=== PATIENT | male | born 1975 | race Caucasian/White ===

== ENCOUNTER 2021-05-19 01:02 | Day surgery (SDC) | payer BC, SELFPAY ==
[2021-05-02 13:45] VITALS: BMI 24.4
--- NOTE | 2021-05-19 09:33 | P.PNAN_ITS ---
Anes - Initial Pre Proc Eval Procedure: Operation Date: 05/19/21 10:45 Proposed Procedures p Esophagogastroduodenoscopy & Screening Colonoscopy - Oscar Leija MD Date/Time: 05/19/21 09:33 Surgeon: Oscar Leija MD Pre Op Diagnosis: neoplasm screening, dysphagia Patient Data Age: 45 Gender: M Height: 1.85 m Weight: 84 kg Allergies Allergy/AdvReac Type Severity Reaction Status Date / Time Penicillins Allergy Unknown Verified 05/19/21 09:37 Home Medications Medication Instructions Recorded Confirmed Type No Home Medications 05/02/21 05/19/21 History Patient hx anesthesia problems: none Family hx anesthesia problems: none Results Review: All pre-operative results and documents have been reviewed as part of the pre-operative evaluation. [facility] Social History Social History Smoking status: Never smoker Alcohol intake: former Substance use: never Substance use type: does not use Living arrangements: with family Spiritual care concerns: No Anes - Eval Final PreProcedure Day of Procedure 05/19/21 09:33 Patient weight: normal Heart: regular rate and rhythm Lungs: clear to auscultation Airway: Mallampati scale class II Neurological: alert and oriented Last oral intake: >/= 8 hours ASA classification: I Emergent: no Anesthesia type and monitoring: general GIVS and standard monitoring Results Review: All pre-operative results and documents have been reviewed as part of the pre-operative evaluation. Informed Consent: The patient's anesthetic plan and its attendant risks and benefits were discussed with the patient/family/POA. Questions were solicited and answers provided to the satisfaction of the patient/family/POA.
[2021-05-19 09:38] VITALS: BP 143/87; PULSE 83; RESP 20; TEMP 36.1; O2SAT 100
--- NOTE | 2021-05-19 09:49 | P.CONGI_ITS ---
Assessment and Plan Assessment and plan (1) Dysphagia: Code(s): R13.10 - Dysphagia, unspecified Status: Acute Assessment and Plan: Patient reports difficulty swallowing off and on for the last year. Suspicio us for esophageal narrowing. Plan is for EGD to assess more thoroughly. Likely will require esophageal dilatation. (2) Encounter for screening colonoscopy: Code(s): Z12.11 - Encounter for screening for malignant neoplasm of colon Status: Acute Assessment and Plan: Patient presents for screening colonoscopy. Appears to be at average risk for colon polyps. GI Consult Note Consult date/time: 05/19/21 09:49 HPI: Mingo Clancy is a 45 year old male Presents for both colonoscopy and EGD. Colonoscopy is requested because of his age. Neoplasia screening advised. He reports his current weight appetite and bowel movements are normal. He denies any bleeding. He has had regular soft bowel habits patient complains of some difficulty swallowing. He reports that food will catch she feels it in his throat. Solid foods happen more often than liquids. He denies any bleeding or weight loss. He desires evaluation of swallowing difficulties. Review of Systems Review of Systems: All systems reviewed & are unremarkable except as noted in HPI and below [facility] Social History Social History Smoking status: Never smoker Alcohol intake: former Substance use: never Substance use type: does not use Living arrangements: with family Spiritual care concerns: No Meds Home Medications and Allergies Home Medications Medication Instructions Recorded Confirmed Type No Home Medications 05/02/21 05/19/21 History Allergies Allergy/AdvReac Type Severity Reaction Status Date / Time Penicillins Allergy Unknown Verified 05/19/21 09:37 Vital Signs Vital Signs - 24 hr 05/19/21 09:38 Temperature 97 F L Pulse Rate 83 Respiratory Rate 20 Blood Pressure 143/87 H Pulse Oximetry 100 Exam Narrative: Physical exam reveals patient to be alert. Vital signs stable. HEENT exam is unremarkable. Patient is anicteric. Lungs are clear to auscultation and percussion. Heart is without murmur or extra sounds. Abdominal exam bowel sounds are present soft nontender with no organomegaly. Digital external rectal exam is normal.
[2021-05-19] MEDS: LACTATED RINGERS 1,000 ML 150 ML IV CONT (09:54)
--- NOTE | 2021-05-19 10:38 | SUR.OPER ---
EGD ENDED 1032, COLONOSCOPY STARTED 1038
[2021-05-19 10:48] VITALS: BP 99/68; PULSE 68; RESP 15; O2SAT 97
[2021-05-19 10:58] VITALS: BP 123/85; PULSE 75; RESP 25; O2SAT 99
[2021-05-19 11:08] VITALS: BP 126/84; PULSE 71; RESP 17; O2SAT 99
--- NOTE | 2021-05-19 11:24 | SUR.PHASEII ---
Dr. Leija advised patient he should have a follow up colonoscopy in five years instead of 10 years after determining the patient has a familial history of colon cancer (sister and father).
== END 2021-05-19 11:30 | disposition home or self-care (01) ==
PROVIDERS: PCP Internal Medicine; Visit Provider Internal Medicine Gastroenterology
PROC: 0DJ08ZZ Inspection of Upper Intestinal Tract, Via Natural or Artificial Opening Endoscopic (ICD-10-PCS; CPT 43235; principal; 2021-05-19 10:45)
DX: Z12.11 Encounter for screening for malignant neoplasm of colon (principal); K64.8 Other hemorrhoids; R13.19 Other dysphagia; K22.2 Esophageal obstruction; K20.90 Esophagitis, unspecified without bleeding
CPT/HCPCS: 45378; 43450; 43239; 88305; J2001; J2704; J7120

== ENCOUNTER 2021-10-13 00:10 | Day surgery (SDC) | payer BC, SELFPAY ==
[2021-10-06 14:38] VITALS: BMI 24.4
--- NOTE | 2021-10-12 08:34 | WPDANESEPP ---
Anes - Eval Pre Procedure Procedure: Operation Date: 10/13/21 08:00 Proposed Procedures p Esophagogastroduodenoscopy - Oscar Leija MD Date/Time: 10/12/21 08:34 Pre Op Diagnosis: eosinophilic esophagitis Patient Data Age: 45 Gender: M Height: 1.85 m Weight: 84 kg Allergies Allergy/AdvReac Type Severity Reaction Status Date / Time Penicillins Allergy Unknown Verified 10/06/21 14:52 Home Medications Medication Instructions Recorded Confirmed Type omeprazole 20 mg PO DAILY 10/06/21 10/06/21 History Patient hx anesthesia problems: none Family hx anesthesia problems: none Results Review: All pre-operative results and documents have been reviewed as part of the pre-operative evaluation. [facility] Past Medical History Medical History (Updated 10/12/21 @ 08:35 by Annette Flores CRNA) Dysphagia recent (05/19/21) bougie dilation performed by Dr. Leija Social History Social History Smoking status: Never smoker Alcohol intake: former Substance use: never Substance use type: does not use Living arrangements: with family Spiritual care concerns: No Exam Day of Procedure 10/12/21 08:34
[2021-10-13 07:02] VITALS: BP 118/76; PULSE 61; RESP 18; TEMP 36.1; O2SAT 99; BMI 24.7
[2021-10-13] MEDS: LACTATED RINGERS 1,000 ML 150 ML IV CONT (07:08)
--- NOTE | 2021-10-13 07:16 | WPDGICN ---
Assessment and Plan Assessment and plan (1) Esophageal stricture: Code(s): K22.2 - Esophageal obstruction Status: Acute Assessment and Plan: Patient has history of eosinophilic esophagitis. Now maintained on omeprazole 20mg p.o. daily. Denies any difficulty swallowing. No heartburn. Plan is for surveillance EGD and biopsy at this time. (2) Eosinophilic esophagitis: Code(s): K20.0 - Eosinophilic esophagitis Status: Acute Assessment and Plan: Elevated eosinophilic count on histology at the time of EGD and esophageal stricture ring. Suggest eosinophilic esophagitis. Patient currently maintained on long-term PPI therapy in asymptomatic present. (3) Family hx of colon cancer: Code(s): Z80.0 - Family history of malignant neoplasm of digestive organs Status: Acute Assessment and Plan: most recent colonoscopy 2020. Anticipate follow-up colonoscopy in 5 years both parents have had colon cancer. GI Consult Note Consult date/time: 10/13/21 07:16 HPI: Mingo Clancy is a 45 year old male Presents for follow-up EGD. Patient reports currently swallows with no difficulty. He denies any heartburn. Previous EGD in May 2021 revealed distal esophageal stricture. Biopsies of the distal esophagus revealed an elevated eosinophilic count suggesting eosinophilic esophagitis. Patient had dilatation at that time. Currently has been maintained on omeprazole 20mg p.o. daily. He denies any heartburn. He has had no difficulty swallowing. He presents today for surveillance follow-up examination. Family history is significant both mother and father have had colon cancer. Colonoscopy is revised 5 year intervals. Most recent colonoscopy 2020. Review of Systems Review of Systems: All systems reviewed & are unremarkable except as noted in HPI and below [facility] Past Medical History Medical History (Updated 10/13/21 @ 07:19 by Oscar Leija MD) Dysphagia recent (05/19/21) bougie dilation performed by Dr. Leija Social History Social History Smoking status: Never smoker Alcohol intake: former Substance use: never Substance use type: does not use Living arrangements: with family Spiritual care concerns: No Meds Home Medications and Allergies Home Medications Medication Instructions Recorded Confirmed Type omeprazole 20 mg PO DAILY 10/06/21 10/06/21 History Allergies Allergy/AdvReac Type Severity Reaction Status Date / Time Penicillins Allergy Unknown Verified 10/13/21 07:01 Vital Signs Vital Signs - 24 hr 10/13/21 07:02 Temperature 97.0 F L Pulse Rate 61 Respiratory Rate 18 Blood Pressure 118/76 Pulse Oximetry 99 Exam Narrative: Physical exam reveals patient to be alert. Vital signs stable. HEENT exam is unremarkable. Patient is anicteric. Lungs are clear to auscultation and percussion. Heart is without murmur or extra sounds. Abdominal exam bowel sounds are present soft nontender with no organomegaly.
--- NOTE | 2021-10-13 07:31 | WPDANESEFPP ---
Anes - Eval Final PreProcedure Day of Procedure 10/13/21 07:31 Patient weight: normal Heart: regular rate and rhythm Lungs: clear to auscultation and normal air movement Airway: Mallampati scale class II Neurological: alert and oriented Last oral intake: >/= 8 hours ASA classification: II Emergent: no Anesthetic plan: proceed Anesthesia type and monitoring: general GIVS and standard monitoring Results Review: All pre-operative results and documents have been reviewed as part of the pre-operative evaluation. Informed Consent: The patient's anesthetic plan and its attendant risks and benefits were discussed with the patient/family/POA. Questions were solicited and answers provided to the satisfaction of the patient/family/POA.
[2021-10-13 08:08] VITALS: BP 108/70; PULSE 60; RESP 14; O2SAT 100
[2021-10-13 08:18] VITALS: BP 108/74; PULSE 64; RESP 17; O2SAT 100
[2021-10-13 08:28] VITALS: BP 122/81; PULSE 63; RESP 20; O2SAT 100
== END 2021-10-13 08:46 | disposition home or self-care (01) ==
PROVIDERS: PCP Internal Medicine; Visit Provider Internal Medicine Gastroenterology
PROC: 0DJ08ZZ Inspection of Upper Intestinal Tract, Via Natural or Artificial Opening Endoscopic (ICD-10-PCS; CPT 43235; principal; 2021-10-13 08:00)
DX: K20.0 Eosinophilic esophagitis (principal); Q39.4 Esophageal web; K22.2 Esophageal obstruction; Z80.0 Family history of malignant neoplasm of digestive organs
CPT/HCPCS: 43239; 43450; 88305; 88313; J2704; J7120